=== PATIENT | female | born 1960 | race Caucasian/White ===

== ENCOUNTER 2018-04-07 08:36 | Emergency (ER) | payer OTHER ==
[~2018-04-07] VITALS: Ht 149.9 cm; Wt 60.4 kg
[~2018-04-07 08:36] MED LIST: ARTHRITIS PAIN650 M2 PO; BENADRYL25 MG PO; BIOCLEANSE PO; CELEBREX200 MG PO; Cipro 0.2% Otic Solu RIGHT EAR; DICLOFENAC SODI75 MG PO; DILAUDID4 MG IV; EDGE PO; FERROUS SULFAT325 MG PO; GARCINIA CAMBO1 EACH PO; MEGA X PO; MELOXICAM15 MG PO; METHOCARBAMOL750 MG PO; OXAYDO5 MG PO; OXYCODONE HCL10 MG PO; OXYCODONE HCL5 MG PO; OXYCONTIN10 MG PO; OXYCONTIN15 MG PO; PROBIOTIC1 EAC1 PO; PROBIOTIC1 EAC3 PO; ROBAXIN500 MG PO; SENNA PLUS TAB1 EACH PO; TYLENOL EXTRA500 MG PO; X FACTOR PO; XARELTO10 MG PO
[2018-04-07] MEDS ORDERED: ZOFRAN ODT4 MG PO (11:16)
[2018-04-07 11:42] VITALS: BP 121/75
== END 2018-04-07 11:43 | disposition home or self-care (01) ==
LOC: EME 08:36
DX: S00.83XA Contusion of other part of head, initial encounter (principal); W01.0XXA Fall on same level from slipping, tripping and stumbling without subsequent striking against object, initial encounter; Y92.480 Sidewalk as the place of occurrence of the external cause; I73.00 Raynaud's syndrome without gangrene; G43.909 Migraine, unspecified, not intractable, without status migrainosus; M19.90 Unspecified osteoarthritis, unspecified site; H91.90 Unspecified hearing loss, unspecified ear
CPT/HCPCS: 70450; 70486; 99281; 99284